=== PATIENT | female | born 1985 | race Caucasian/White ===

== ENCOUNTER → 2019-10-09 | Outpatient (CLI) | payer SELFPAY ==
[~2019-10-09] MED LIST: DCS100C PO; IBP800T PO; LEVO75TA6 PO; OXYC1TAB12 PO; PREN1TAB19 PO
--- NOTE | 2019-10-09 09:05 | NUR ---
pt ambulated to OB for Rhogam injection. pt escorted to waiting room.
--- NOTE | 2019-10-09 09:42 | NUR ---
Rhogam injections given in Rt.GM. pt tolerated well. no sx's of distress noted pt ambulated to private vehicle without c/o's.
== END ==
LOC: WSo 09:16
PROVIDERS: ATTEND Obstetrics & Gynecology
DX: Z31.82 Encounter for Rh incompatibility status (principal)
CPT/HCPCS: 96372

== ENCOUNTER 2019-12-22 19:09 | Inpatient (IN) | payer OTHER ==
[2019-12-22] VITALS (11 sets, daily range): BP systolic 0–148; BP diastolic 0–91
[~2019-12-22] VITALS: Ht 170.2 cm; Wt 76.2 kg
--- NOTE | 2019-12-22 19:15 | NUR ---
ANA GATES presented to unit via ambulatory from ED, accompanied by self, with c/o CONTRACTIONS. ANA GATES weighed, gowned, voided, and to bed. EFHM and TOCO applied, VS taken. ANA GATES oriented to bed controls, call light, TV, heat, and A/C controls. further assessments to follow.
[2019-12-22] MEDS ORDERED: METR500T PO (19:38)
[2019-12-22] MEDS ORDERED: PREN-54 PO (19:39)
[2019-12-22] MEDS ORDERED: D5 LR IV SOLUTION 1,000 ML IV SCH (19:53)
[2019-12-22] MEDS ORDERED: D5 LR IV SOLUTION 1,000 ML IV ONE (19:54)
[2019-12-22 20:24] LABS: BASOPHILS % (AUTO) 0 % (0-10); EOSINOPHILS % (AUTO) 0 % (0-10); HEMATOCRIT 40 % (35-52); HEMOGLOBIN 13.5 G/DL (11.5-16.0); LYMPHOCYTES # (AUTO) 1.6 X 10^3 (1.0-4.0); LYMPHOCYTES % (AUTO) 16 % (12-44); MEAN CORPUSCULAR HEMOGLOBIN 31 PG (25-34); MEAN CORPUSCULAR HGB CONC 34 G/DL (32-36); MEAN CORPUSCULAR VOLUME 92 FL (80-99); MEAN PLATELET VOLUME 11.7 FL (7.4-10.4); MONOCYTES # (AUTO) 0.7 X 10^3 (0.0-1.0); MONOCYTES % (AUTO) 7 % (0-12); NEUTROPHILS # (AUTO) 7.8 X 10^3 (1.8-7.8); NEUTROPHILS % (AUTO) 77 % (42-75); PLATELET COUNT 231 10^3/uL (130-400); WHITE BLOOD COUNT 10.1 10^3/uL (4.3-11.0)
[2019-12-22] MEDS ORDERED: CATHETER FLUSH 10 ML SYR IV SCH (22:00)
[2019-12-22] MEDS ORDERED: fentaNYL 2 mcg/ml BUPIVA 0.125 0 ML ONE (23:11)
[2019-12-22] MEDS ORDERED: CALCIUM CARBONATE 500 MG (TUMS) TAB.CHEW PO PRN (23:15)
[2019-12-22] MEDS ORDERED: LIDOCAINE/EPI 2% 1:200,00 (XYLOCAINE) 10 ML VIAL ONE (23:16)
[2019-12-22] MEDS ORDERED: OXYTOCIN PRE-MIX DRIP 0 ML IV ONE (23:16)
[2019-12-22] MEDS ORDERED: LACTATED RINGERS 1,000 ML IV ONE (23:17)
[2019-12-23] VITALS (15 sets, daily range): BP systolic 112–148; BP diastolic 69–82
[2019-12-23] MEDS ORDERED: OXYTOCIN PRE-MIX DRIP 500 ML IV SCH (00:25)
[2019-12-23] MEDS ORDERED: IBUPROFEN 800 MG (MOTRIN) TAB PO ONE (00:29)
[2019-12-23] MEDS ORDERED: TETANUS,DIPTH,PERTUSS P/F (BOOSTRIX) 0.5 ML VIAL IM ONE (00:30)
[2019-12-23] MEDS ORDERED: MEASLES,MUMPS,RUBELLA 1 EA INJ SC ONE (00:30)
[2019-12-23] MEDS ORDERED: KETOROLAC 30 MG/ML VIAL IVP SCH (00:30)
[2019-12-23] MEDS ORDERED: ONDANSETRON 4 MG/2 ML (SDV) Z0FRAN IVP PRN (00:30)
[2019-12-23] MEDS ORDERED: BENZOCAINE/MENTHOL (DERMOPLAST) 60 ML CAN TP PRN (00:30)
--- NOTE | 2019-12-23 00:32 | History & Physical ---
History and Physical Date Seen by Provider: Dec 23, 2019 Time Seen by Provider: 00:30 this patient is a 34-year-old 2 para 1 white female who presents at 38+ weeks gestation in active labor. She denies rupture membranes or bleeding she's had no problems with this her GBS culture was negative Cervix was 5 cm on admission patient labored fairly rapidly and at this point is artery delivered Allergies are none Medications are vitamins Medical social and surgical histories are per the antepartum record HEENT exam is normal Neck is supple no lymphadenopathy no thyromegaly Abdomen is gravid soft nontender nondistended Extremities show no clubbing cyanosis. There is no Homans sign. On my arrival patient was completed dilated percent effaced +3 to +4 station with vertex presentation and an obvious moderate distress with pain and pressure from the eminent delivery see my delivery note Assessment and plan 38+ weeks gestation admitted in active labor and now delivered by term spontaneous vaginal delivery. 38 week spontaneous labor Allergies and Home Medications Allergies Coded Allergies: No Known Drug Allergies (Unverified , 08/26/14) Home Medications Levothyroxine Sodium 75 Mcg Tablet, 75 MCG PO DAILY, (Reported) at HS Metronidazole 500 Mg Tablet, 500 MG PO WEEK, (Reported) Pnv No.118/Iron Fumarate/FA 1 Each Tab.chew, 1 EACH PO DAILY, (Reported) Patient Home Medication List Home Medication List Reviewed: Yes Clinical Quality Measures DVT/VTE Risk/Contraindication: Risk Factor Score Per Nursin RFS Level Per Nursing on Admit: 1=Low/No VTE PPX JAZMÍN HOSKINS MD Dec 23, 2019 00:32
[2019-12-23] MEDS ORDERED: OXYC1TAB87 PO (00:34)
[2019-12-23] MEDS ORDERED: IBUP-1780 PO (00:34)
[2019-12-23] MEDS ORDERED: DCS100C PO (00:34)
[2019-12-23] MEDS: oxyCODONE/APAP 5/325MG (PERCOCET 5) TABLET PO PRN ×2 (00:35→13:06)
--- NOTE | 2019-12-23 00:35 | Discharge Inst-Surgical ---
Discharge Inst-Surgical Depart Medication/Instructions New, Converted or Re-Newed RX: RX on Chart Consults/Follow Up Patient Instructions: as directed Orders & Referrals Follow Up Appt: Call to make follow up appt. for patient in 4 weeks. Activity Per routine post vaginal delivery instructions. Please call in RX to patient pharmacy. Diet as tolerated Patient may shower or tub bathe as desired. Activity Activity as Tolerated: No Diet Discharge Diet: No Restrictions JAZMÍN HOSKINS MD Dec 23, 2019 00:34
[2019-12-23] MEDS: IBUPROFEN 800 MG (MOTRIN) TAB PO SCH ×4 (00:36→18:15)
--- NOTE | 2019-12-23 05:05 | NUR ---
Pt up to bathroom stand by per Simon DE SANTIAGO for void and pericare, pads and gown changed, transferred to pp unit room 309 via wc at this time oriented to call system and surroundings per Simon de santiago.
--- NOTE | 2019-12-23 05:11 | OPERATIVE REPORT ---
DATE OF SERVICE: 12/22/2019 ADMISSION DIAGNOSIS: Term in labor with advanced dilation. OPERATIVE PROCEDURE: The patient delivered by term spontaneous vaginal delivery a viable female infant with Apgars of 8 and 9 at 1 and 5 minutes respectively, weight of 7 pounds 1 ounce with time of 23:59 and a cord blood pH was 7.33. The delivered over a first-degree perineal laceration under no analgesia. The infant was bulb suctioned on delivery of the head and again on completion of delivery. Umbilical cord was doubly clamped when it was pulseless, the father cut the cord, the baby was passed to mom's abdomen and then shortly taken to the warmer at her request. The placenta delivered spontaneously Butt. It was a battledore placenta with somewhat velamentous appearing insertion of the vessels, but was otherwise normal. It was sent to pathology. The cervix, vagina, rectum, and perineum were examined and found intact, except for a first-degree perineal laceration that extended from just inside the hymen up the left internal labia majora and down on to the perineal body approximately 2 cm. This was a first-degree, it was repaired with a single suture of 3-0 Vicryl Rapide in the usual manner with good hemostasis and good reapproximation. The repair was made under local analgesia using 1% lidocaine with epinephrine. Sponge and needle counts were correct on completion of delivery and repair. The patient tolerated the delivery and repair well and remained in the LDR. The baby remained with the mom. Job ID: [id number] DocumentID: [id number] Dictated Date: 12/23/2019 00:37:29 Circulation Analyst Date: 12/23/2019 05:10:13 Dictated By: JAZMÍN HOSKINS MD
[2019-12-23] MEDS ORDERED: WITCH HAZEL(TUCKS) 40 EA JAR TOP PRN (07:45)
--- NOTE | 2019-12-23 09:00 | NUR ---
A.M. ASSESSMENT COMPLETED. VSS. ASSISTED UP TO THE BATHROOM. VOIDED WITH SLOW STREAM LARGE AMOUNT OVER 10 MINUTES. PERICARE PERFORMED WITH DERMAPLAST SPRAYAND TUCKS APPLIED. BACK TO BED. MOVING SLOWLY. C/O BEING STIFF. FF U/1. VAG FLOW LT/MOD RUBRA.
[2019-12-23] MEDS: DOCUSATE SODIUM 100 MG (COLACE) CAP PO SCH ×2 (09:27→21:00)
--- NOTE | 2019-12-23 09:30 | NUR ---
INSTRUCTED IN NUPERCAINAL OINTMENT, TUCKS, AND DERMAPLAST SPRAY. ICE PACK PLACED. SEE DESCRIPTION OF PERINEUM IN PP ASSESSMENT. STATES IT ONLY HURTS IF IT IS TOUCHED. S.O. AT BEDSIDE CARING FOR INFANT.
[2019-12-23] MEDS ORDERED: DIBUCAINE (NUPERCAINAL) 1% OINT 30 GM TOP PRN (10:45)
--- NOTE | 2019-12-23 11:00 | NUR ---
INFORMED DR. HOSKINS ABOUT SWELLING AND BRUISING OF LABIA.
--- NOTE | 2019-12-23 11:13 | Progress Note ---
Standard Progress Note Progress Notes/Assess & Plan Date Seen by a Provider: Dec 23, 2019 Time Seen by a Provider: 11:12 Progress/Assessment & Plan this patient is without complaint. She is ambulating, voiding, tolerating oral intake well has good pain control. Vital Signs Date Time Temp Pulse Resp B/P (MAP) Pulse Ox O2 Delivery O2 Flow Rate FiO2 12/23/19 04:43 37.2 71 18 113/69 (84) Room Air 12/23/19 03:43 37.2 62 18 124/75 (91) Room Air 12/23/19 02:43 65 18 125/70 (88) Room Air 12/23/19 02:13 59 18 118/71 (87) Room Air 12/23/19 01:42 37.1 61 18 131/78 (95) Room Air 12/23/19 01:27 71 18 130/77 (94) Room Air 12/23/19 01:13 37.4 86 18 130/70 (90) Room Air 12/23/19 00:57 68 18 148/70 (96) Room Air 12/23/19 00:42 37.2 72 18 148/72 (97) Room Air 12/23/19 00:27 37.2 18 135/72 (93) Room Air 12/23/19 00:12 37.1 86 18 146/73 (97) Room Air 12/22/19 23:42 81 18 146/81 (102) Room Air 12/22/19 23:10 37.4 82 18 148/88 (108) Room Air 12/22/19 22:10 37.1 63 18 126/87 (100) 98 Room Air 12/22/19 21:13 66 18 118/79 (92) Room Air 12/22/19 20:12 82 18 122/83 (96) Room Air 12/22/19 19:50 83 18 148/78 (101) Room Air 12/22/19 19:40 80 18 130/85 (100) Room Air 12/22/19 19:35 79 18 134/83 (100) Room Air 12/22/19 19:30 37.3 89 18 98 Room Air 12/22/19 19:28 37.3 89 18 134/91 (105) 98 Room Air 12/22/19 19:22 37.3 89 18 Room Air I & O 12/23/19 07:00 Intake Total 1300 ml Balance 1300 ml vital signs are stable. Patient is afebrile. Fundus is firm below the umbilicus and nontender. Extremities show no clubbing or cyanosis. There is no Homans sign. Assessment and plan day 1 status post term spontaneous vaginal delivery doing well. Plan is for routine convalescence care JAZMÍN HOSKINS MD Dec 23, 2019 11:13
--- NOTE | 2019-12-23 13:06 | NUR ---
PERCOCET 5/325 2 TABS P.O. FOR C/O LOW ABD CRAMP MAINLY ON RLQ.
--- NOTE | 2019-12-23 14:19 | NUR ---
TDAP GIVEN IM IN LEFT DELTOID. SITE CLEAR.
--- NOTE | 2019-12-23 16:00 | NUR ---
ENCOURAGED PT TO TRY TO AMBULATE IN THE CABRALES WITH S.O. PUSHING IN CRIB AND TO WEAR MASKS. PT HAS C/O FEELING STIFF ALL DAY. EXPLAINED NOT MOVING LIKE NORMAL IS PROBABLY MAKING HER MORE STIFF. VSS.
--- NOTE | 2019-12-23 18:00 | NUR ---
STORK MEAL SERVED. PT UP TO BATHROOM.
--- NOTE | 2019-12-23 18:15 | NUR ---
ROUTINE MOTRIN GIVEN. CONTINUES TO REST IN BED MOST OF THE TIME. DECLINED ANOTHER ICE PACK.
--- NOTE | 2019-12-23 21:00 | NUR ---
Pt resting in bed, lights turned down for the night. Pt assessment completed. s/o at bedside. Pt denies any needs at this time. Will continue to monitor.
[2019-12-24] MEDS: IBUPROFEN 800 MG (MOTRIN) TAB PO SCH ×2 (00:56→08:09)
[2019-12-24 03:50] VITALS: BP 123/77
[2019-12-24 07:50] VITALS: BP 124/86
[2019-12-24] MEDS: DOCUSATE SODIUM 100 MG (COLACE) CAP PO SCH (08:08)
[2019-12-24] MEDS: oxyCODONE/APAP 5/325MG (PERCOCET 5) TABLET PO PRN (08:09)
--- NOTE | 2019-12-24 08:54 | NUR ---
Dr Mayfield here to see pt. Assessed swollen labia and discussed home care with patient and patient's . Questions answered. no other concerns voiced at this time.
--- NOTE | 2019-12-24 09:03 | Progress Note ---
Standard Progress Note Progress Notes/Assess & Plan Date Seen by a Provider: Dec 24, 2019 Time Seen by a Provider: 09:01 Progress/Assessment & Plan this patient is without complaint. She is ambulating, voiding, tolerating oral intake well has good pain control. Vital Signs Date Time Temp Pulse Resp B/P (MAP) Pulse Ox O2 Delivery O2 Flow Rate FiO2 12/23/19 04:43 37.2 71 18 113/69 (84) Room Air 12/23/19 03:43 37.2 62 18 124/75 (91) Room Air 12/23/19 02:43 65 18 125/70 (88) Room Air 12/23/19 02:13 59 18 118/71 (87) Room Air 12/23/19 01:42 37.1 61 18 131/78 (95) Room Air 12/23/19 01:27 71 18 130/77 (94) Room Air 12/23/19 01:13 37.4 86 18 130/70 (90) Room Air 12/23/19 00:57 68 18 148/70 (96) Room Air 12/23/19 00:42 37.2 72 18 148/72 (97) Room Air 12/23/19 00:27 37.2 18 135/72 (93) Room Air 12/23/19 00:12 37.1 86 18 146/73 (97) Room Air 12/22/19 23:42 81 18 146/81 (102) Room Air 12/22/19 23:10 37.4 82 18 148/88 (108) Room Air 12/22/19 22:10 37.1 63 18 126/87 (100) 98 Room Air 12/22/19 21:13 66 18 118/79 (92) Room Air 12/22/19 20:12 82 18 122/83 (96) Room Air 12/22/19 19:50 83 18 148/78 (101) Room Air 12/22/19 19:40 80 18 130/85 (100) Room Air 12/22/19 19:35 79 18 134/83 (100) Room Air 12/22/19 19:30 37.3 89 18 98 Room Air 12/22/19 19:28 37.3 89 18 134/91 (105) 98 Room Air 12/22/19 19:22 37.3 89 18 Room Air I & O 12/23/19 07:00 Intake Total 1300 ml Balance 1300 ml vital signs are stable. Patient is afebrile. Fundus is firm below the umbilicus and nontender. Extremities show no clubbing or cyanosis. There is no Homans sign. Assessment and plan day 1 status post term spontaneous vaginal delivery doing well. Plan is for routine convalescence care December 24, 2019 Patient is without complaint. She is ambulating, voiding, tolerating oral intake well has good pain control. Patient does complain of some swelling of the labia primarily the right side. Vital Signs Date Time Temp Pulse Resp B/P (MAP) Pulse Ox O2 Delivery O2 Flow Rate FiO2 12/24/19 03:50 36.8 58 18 123/77 (92) 98 Room Air 12/23/19 22:48 36.5 61 18 116/72 (87) 98 Room Air 12/23/19 16:00 36.8 83 18 112/82 (92) 98 Room Air 12/23/19 12:30 36.9 60 18 119/78 (92) 98 Room Air vital signs are stable. Patient is afebrile. The abdomen is benign. The fundus is firm below the umbilicus and nontender. Extremities show no clubbing or cyanosis. There is no Homans sign. Pelvic exam shows edematous right inferior labia majora with extension into the perineal body. There are no signs symptoms and indications of hematoma or infection Assessment and plan day number 2 status post term spontaneous vaginal delivery doing well. Plan is for discharge home with follow-up in clinic Final Diagnosis 38 week spontaneous vaginal delivery JAZMÍN HOSKINS MD Dec 24, 2019 09:03
--- NOTE | 2019-12-24 10:27 | NUR ---
Pt refused flu vaccine.
[2019-12-24 12:00] VITALS: BP 113/64
--- NOTE | 2019-12-24 12:45 | NUR ---
ANA GATES demonstrates understanding of discharge instructions and accurately returns instructions upon questioning. Copy of Post-Discharge Instructions and Medication Discharge Instructions given to patient. ANA GATES is able to manage continuing needs after discharge. Patients belongings returned to patient. Skin dry and intact; no breakdown noted. Patient discharged from [facility] on 12/24/19 at 1245. ANA GATES left floor via wheel chair, accompanied by and women services staff.
== END 2019-12-24 12:45 | disposition home or self-care (01) | DRG 807 ==
LOC: WSo 19:09 → LDRP 19:09 → WSo 20:21 → LDRP 12-23 05:05
PROVIDERS: ADMIT Obstetrics & Gynecology; ATTEND Obstetrics & Gynecology
PROC: 10E0XZZ Delivery of Products of Conception, External Approach (ICD-10-PCS; principal; 2019-12-22)
PROC: 0HQ9XZZ Repair Perineum Skin, External Approach (ICD-10-PCS; 2019-12-22)
DX: O70.0 First degree perineal laceration during delivery (principal); Z37.0 Single live birth; O43.193 Other malformation of placenta, third trimester; Z3A.38 38 weeks gestation of pregnancy; Z23 Encounter for immunization
CPT/HCPCS: 36415; 83033; 85025; 86780; 86850; 86900; 86901; 90715; 99212